=== PATIENT | male | born 1960 | race Caucasian/White ===

== ENCOUNTER 2025-03-07 13:31 | Inpatient (IN) | payer MEDICARE, OTHER ==
[~2025-03-07] VITALS: Ht 175.3 cm; Wt 117.0 kg
[2025-03-07] MEDS ORDERED: HYDR-501 PO (13:55)
[2025-03-07] MEDS ORDERED: MAG30ORA PO (13:55)
[2025-03-07] MEDS ORDERED: MULT-594 PO (13:55)
[2025-03-07] MEDS ORDERED: POLY17PO4 PO (13:55)
[2025-03-07] MEDS ORDERED: NA P133E RC (13:55)
[2025-03-07] MEDS ORDERED: LEVO88TA5 PO (13:55)
[2025-03-07] MEDS ORDERED: NALO4SPR NS (13:55)
[2025-03-07] MEDS ORDERED: LORA10CA PO (13:55)
[2025-03-07] MEDS ORDERED: TRAZ-182 PO (13:55)
[2025-03-07] MEDS ORDERED: ENOX40DI SQ (13:55)
[2025-03-07] MEDS ORDERED: GLUC1KIT IM (13:55)
[2025-03-07] MEDS ORDERED: OMEG1CAP PO (13:55)
[2025-03-07] MEDS ORDERED: BUSP5TAB3 PO (13:55)
[2025-03-07] MEDS ORDERED: ACET325C7 PO (13:55)
[2025-03-07] MEDS ORDERED: MORP15TA PO (13:55)
[2025-03-07] MEDS ORDERED: LAMO150T2 PO (13:55)
[2025-03-07] MEDS ORDERED: CHOL10005 PO (13:55)
[2025-03-07] MEDS ORDERED: LACT10SO58 PO (13:55)
[2025-03-07] MEDS ORDERED: AMIO200T5 PO (13:55)
[2025-03-07] MEDS ORDERED: SENN8.6T19 PO (13:55)
[2025-03-07] MEDS ORDERED: TAMS-3 PO (13:55)
[2025-03-07] MEDS ORDERED: ATOR40TA PO (13:55)
[2025-03-07] MEDS ORDERED: FERR325T28 PO (13:55)
[2025-03-07] MEDS ORDERED: PANT40TA49 PO (13:55)
[2025-03-07] MEDS ORDERED: MAGN400O6 PO (13:55)
[2025-03-07] MEDS ORDERED: MELA5TAB20 PO (13:55)
[2025-03-07] MEDS ORDERED: BISA10SU95 RC (13:55)
[2025-03-07] MEDS ORDERED: DULO40CA2 PO (13:55)
[2025-03-07] MEDS ORDERED: INSU100V28 SQ (13:55)
[2025-03-07 14:03] LABS: PLATELET COUNT (AUTO) 235 K/uL (152-348); RED BLOOD CELL COUNT(AUTO) 4.34 MIL/uL (4.06-5.63); RED CELL DISTRIBUTION WIDTH 14.4 % (12.1-16.2); WHITE BLOOD COUNT (AUTO) 8.1 K/uL (3.6-10.2)
[2025-03-07 14:14] LABS: CREATININE 2.4 mg/dL (0.6-1.3); SODIUM SERUM 139 mmol/L (136-145); UREA NITROGEN, BLOOD 31 mg/dL (7-18)
[2025-03-07 14:20] LABS: ASPARTATE AMINOTRANSFERASE 39 U/L (15-37); TOTAL PROTEIN, SERUM 6.5 g/dL (6.4-8.2)
[2025-03-07] MEDS ORDERED: AZITHROMYCIN 500MG/ D5W 250ML IVPB **ER PYXIS ONLY IV ONE (16:26)
[2025-03-07 16:30] VITALS: BP 113/79
[2025-03-07] MEDS: AZITHROMYCIN IV 500 MG in IV DEXTROSE 5% 250 ML IV ONE (16:30)
[2025-03-07 18:53] VITALS: BP 111/86; TEMP 98.4; O2SAT 96
[2025-03-07 19:00] VITALS: BP 119/86; TEMP 97.8; O2SAT 96
[2025-03-07] MEDS ORDERED: MIRALAX 17 GM POWD.PACK PO PRN (19:45)
[2025-03-07] MEDS ORDERED: ONDANSETRON 4 MG/2 ML VIAL IV PRN (19:45)
[2025-03-07] MEDS ORDERED: BISACODYL 10 MG SUPP.RECT RC PRN (19:45)
[2025-03-07] MEDS ORDERED: ACETAMINOPHEN 325 MG TABLET PO PRN (20:45)
[2025-03-07] MEDS ORDERED: TRAZODONE 50 MG TABLET PO SCH (21:00)
[2025-03-07] MEDS: IV NS 1000 ML 1,000 ML IV PRN (21:00)
[2025-03-07] MEDS ORDERED: CEFTRIAXONE /D5W 50ML IVPB **ER PYXIS IV ONE (21:01)
[2025-03-07] MEDS: ENOXAPARIN SODIUM 30 MG/0.3 ML DISP.SYRIN SUBCUT SCH (21:02)
[2025-03-07] MEDS: TAMSULOSIN HCL 0.4 MG CAP.SR.24H PO SCH (21:02)
[2025-03-07] MEDS: TRAZODONE 100 MG TABLET PO SCH (21:02)
[2025-03-07] MEDS: ATORVASTATIN 40 MG TABLET PO SCH (21:03)
[2025-03-07] MEDS: MELATONIN 3 MG TABLET PO SCH (21:03)
[2025-03-08] VITALS (7 sets, daily range): BP systolic 96–123; BP diastolic 63–85; TEMP 97.8–98.5; O2SAT 94–98
[2025-03-08] MEDS: LEVOTHYROXINE SODIUM 88 MCG TABLET PO SCH (06:32)
[2025-03-08 07:18] LABS: PLATELET COUNT (AUTO) 204 K/uL (152-348); RED BLOOD CELL COUNT(AUTO) 3.99 MIL/uL (4.06-5.63); RED CELL DISTRIBUTION WIDTH 14.3 % (12.1-16.2); WHITE BLOOD COUNT (AUTO) 8.1 K/uL (3.6-10.2)
[2025-03-08 08:04] LABS: ASPARTATE AMINOTRANSFERASE 34.0 U/L (15-37); CREATININE 2.1 mg/dL (0.6-1.3); SODIUM SERUM 140.0 mmol/L (136-145); TOTAL PROTEIN, SERUM 5.6 g/dL (6.4-8.2); UREA NITROGEN, BLOOD 29.0 mg/dL (7-18)
[2025-03-08] MEDS: LAMOTRIGINE 25 MG TABLET PO SCH (08:26)
[2025-03-08] MEDS: DULOXETINE 20 MG CAPSULE.DR PO SCH (08:26)
[2025-03-08] MEDS: SENNOSIDES 1 TABLET PO SCH (08:27)
[2025-03-08] MEDS: PANTOPRAZOLE SODIUM 40 MG TABLET.DR PO SCH (08:27)
[2025-03-08] MEDS: CHOLECALCIFEROL 1,000 UNIT TABLET PO SCH (08:27)
[2025-03-08] MEDS: MULTIVITAMINS,THERAPEUTIC TABLET PO SCH (08:27)
[2025-03-08] MEDS: LORATADINE 10 MG TABLET PO SCH (08:27)
[2025-03-08] MEDS: AMIODARONE HCL 200 MG TABLET PO SCH (08:28)
[2025-03-08] MEDS ORDERED: Medication Not On Formulary EA (Lamotrigine (Lamictal) 150 MG) PO SCH (09:00)
[2025-03-08] MEDS ORDERED: Medication Not On Formulary EA (Multivitamins (Multivitamin) 1 EACH) PO SCH (09:00)
[2025-03-08] MEDS ORDERED: AZITHROMYCIN IV 250 MG in IV DEXTROSE 5% 250 ML IV SCH (09:00)
[2025-03-08] MEDS ORDERED: DULOXETINE HCL 40 MG PO SCH (09:00)
[2025-03-08] MEDS ORDERED: LEVOTHYROXINE SODIUM 88 MCG TABLET PO SCH (09:00)
[2025-03-08] MEDS ORDERED: REMEDY ESSENTIAL ZINC PASTE 113 GM TOP PRN (09:15)
[2025-03-08] MEDS ORDERED: FERR-68 PO (11:08)
[2025-03-08] MEDS ORDERED: AZITHROMYCIN IV 500 MG in IV DEXTROSE 5% 250 ML IV SCH (16:00)
[2025-03-08] MEDS: DOXYCYCLINE HYCLATE 100 MG TABLET PO SCH (18:07)
[2025-03-09] MEDS: GUAIFENESIN/DEXTROMETHORPHAN 5 ML UDC PO PRN (01:12)
[2025-03-09 05:47] LABS: *BILIRUBIN,URIN NEGATIVE (NEGATIVE); *BLOOD, URINE NEGATIVE (NEGATIVE); *CLARITY,URINE CLEAR (CLEAR); *COLOR,URINE YELLOW (YELLOW); *KETONES,URINE NEGATIVE (NEGATIVE); *PROTEIN,URINE NEGATIVE (NEGATIVE); *UROBILINOGEN,URINE 0.2 E.U./dl (NORMAL); LEUKOCYTE ESTERASE ,URINE NEGATIVE (NEGATIVE); NITRITE, URINE NEGATIVE (NEGATIVE); UGLUCOSE NEGATIVE (NEGATIVE)
[2025-03-09 05:56] LABS: *CREATININE,URINE 72.5 mg/dL (30-125); *SODIUM RNDM,URINE 143.0 mmol/L (40-220); *URINE TOTAL PROTEIN RANDOM 14.8 mg/dL (<150/24HR)
[2025-03-09 06:00] VITALS: BP 132/80; TEMP 97.6; O2SAT 99
[2025-03-09 06:53] LABS: PLATELET COUNT (AUTO) 213 K/uL (152-348); RED BLOOD CELL COUNT(AUTO) 3.80 MIL/uL (4.06-5.63); RED CELL DISTRIBUTION WIDTH 14.5 % (12.1-16.2); WHITE BLOOD COUNT (AUTO) 8.5 K/uL (3.6-10.2)
[2025-03-09 07:09] LABS: ASPARTATE AMINOTRANSFERASE 31.0 U/L (15-37); CREATINE KINASE, TOTAL 41.0 U/L (39-308); CREATININE 2.2 mg/dL (0.6-1.3); SODIUM SERUM 141.0 mmol/L (136-145); TOTAL PROTEIN, SERUM 5.8 g/dL (6.4-8.2); UREA NITROGEN, BLOOD 27.0 mg/dL (7-18)
[2025-03-09 08:00] VITALS: BP 110/82; TEMP 98.7; O2SAT 97
[2025-03-09 10:54] VITALS: BP 101/65; TEMP 97.7; O2SAT 95
[2025-03-09 15:18] VITALS: BP 94/55; TEMP 97.8; O2SAT 94
[2025-03-09 17:00] VITALS: BP 133/86; O2SAT 94
[2025-03-09 19:37] VITALS: BP 108/71; TEMP 98.3; O2SAT 97
[2025-03-09] MEDS: MUPIROCIN 2% OINT 22 GM TUBE NS SCH (21:00)
[2025-03-09] MEDS ORDERED: MUPIROCIN 2% OINT 22 GM TUBE ONE (22:15)
[2025-03-10 06:12] LABS: PLATELET COUNT (AUTO) 217 K/uL (152-348); RED BLOOD CELL COUNT(AUTO) 3.96 MIL/uL (4.06-5.63); RED CELL DISTRIBUTION WIDTH 14.0 % (12.1-16.2); WHITE BLOOD COUNT (AUTO) 8.8 K/uL (3.6-10.2)
[2025-03-10 06:28] VITALS: BP 105/70; TEMP 98; O2SAT 95
[2025-03-10 06:29] LABS: ASPARTATE AMINOTRANSFERASE 33.0 U/L (15-37); CREATININE 2.0 mg/dL (0.6-1.3); SODIUM SERUM 142.0 mmol/L (136-145); TOTAL PROTEIN, SERUM 6.0 g/dL (6.4-8.2); UREA NITROGEN, BLOOD 24.0 mg/dL (7-18)
[2025-03-10] MEDS: LAMOTRIGINE 100 MG TABLET PO SCH (08:59)
[2025-03-10 09:03] VITALS: BP 107/66; TEMP 98; O2SAT 95
[2025-03-10] MEDS ORDERED: ALBUTEROL SULFATE 2.5 MG/ 0.5 ML NEBU NEB PRN (10:00)
[2025-03-10 11:30] VITALS: BP 110/70; TEMP 97.6; O2SAT 96
[2025-03-10 12:07] LABS: PTH, INTACT 23 pg/mL (15-65)
[2025-03-10] MEDS ORDERED: IV NS 1000 ML 1,000 ML IV PRN (13:15)
[2025-03-10 15:19] VITALS: BP 101/74; TEMP 97.8; O2SAT 95
[2025-03-10 19:00] VITALS: BP 118/73; TEMP 97.8; O2SAT 95
[2025-03-10] MEDS: ATORVASTATIN 10 MG TABLET PO SCH (20:38)
[2025-03-11 06:35] VITALS: BP 127/85; TEMP 97.6; O2SAT 94
[2025-03-11] MEDS: AZITHROMYCIN IV 500 MG in IV DEXTROSE 5% 250 ML IV SCH (11:42)
[2025-03-11 11:56] VITALS: BP 97/73; TEMP 98.1; O2SAT 95
[2025-03-11 16:28] VITALS: BP 132/83; TEMP 98.8; O2SAT 96
[2025-03-11 19:00] VITALS: BP 117/80; TEMP 97.9; O2SAT 97
[2025-03-12 06:00] VITALS: BP 116/83; TEMP 97.7; O2SAT 97
[2025-03-12 06:42] LABS: PLATELET COUNT (AUTO) 223 K/uL (152-348); RED BLOOD CELL COUNT(AUTO) 4.34 MIL/uL (4.06-5.63); RED CELL DISTRIBUTION WIDTH 14.2 % (12.1-16.2); WHITE BLOOD COUNT (AUTO) 8.6 K/uL (3.6-10.2)
[2025-03-12 06:52] LABS: ASPARTATE AMINOTRANSFERASE 45.0 U/L (15-37); CREATININE 1.9 mg/dL (0.6-1.3); SODIUM SERUM 142.0 mmol/L (136-145); TOTAL PROTEIN, SERUM 6.3 g/dL (6.4-8.2); UREA NITROGEN, BLOOD 24.0 mg/dL (7-18)
[2025-03-12 11:30] VITALS: BP 92/60; TEMP 98.4; O2SAT 94
[2025-03-13 10:07] LABS: *ANTI-SCLERODERMA-70 AB <0.2 AI (0.0-0.9); *RNP ANTIBODIES 0.9 AI (0.0-0.9); *SJOGREN'S ANTI-SS-A <0.2 AI (0.0-0.9); *SJOGREN'S ANTI-SS-B <0.2 AI (0.0-0.9); *SMITH ANTIBODIES <0.2 AI (0.0-0.9); ANTI-DNA(DS) AB, QN <1 IU/mL (0-9); ANTI-NUCLEAR AB DIRECT Negative (Negative)
== END 2025-03-12 14:25 | DRG 196 ==
LOC: ER 13:31 → TELE3 17:31 → MEDSURG3 03-08 08:15
PROVIDERS: ADMIT Internal Medicine; ATTEND Internal Medicine
DX: J84.112 Idiopathic pulmonary fibrosis (principal); N17.0 Acute kidney failure with tubular necrosis; D68.59 Other primary thrombophilia; I13.0 Hypertensive heart and chronic kidney disease with heart failure and stage 1 through stage 4 chronic kidney disease, or unspecified chronic kidney disease; I50.22 Chronic systolic (congestive) heart failure; Z68.41 Body mass index [BMI] 40.0-44.9, adult; I69.354 Hemiplegia and hemiparesis following cerebral infarction affecting left non-dominant side; E44.0 Moderate protein-calorie malnutrition; N18.9 Chronic kidney disease, unspecified; E66.01 Morbid (severe) obesity due to excess calories; I48.0 Paroxysmal atrial fibrillation; Z74.09 Other reduced mobility; Z86.14 Personal history of Methicillin resistant Staphylococcus aureus infection; E78.5 Hyperlipidemia, unspecified; I44.0 Atrioventricular block, first degree; J20.9 Acute bronchitis, unspecified; N40.0 Benign prostatic hyperplasia without lower urinary tract symptoms; Z87.891 Personal history of nicotine dependence; Z96.642 Presence of left artificial hip joint; E88.09 Other disorders of plasma-protein metabolism, not elsewhere classified; E11.22 Type 2 diabetes mellitus with diabetic chronic kidney disease; N18.32 Chronic kidney disease, stage 3b; Z86.39 Personal history of other endocrine, nutritional and metabolic disease; I71.21 Aneurysm of the ascending aorta, without rupture; D64.9 Anemia, unspecified; L29.9 Pruritus, unspecified; K21.9 Gastro-esophageal reflux disease without esophagitis; G47.33 Obstructive sleep apnea (adult) (pediatric); F32.A Depression, unspecified; F41.9 Anxiety disorder, unspecified; Z79.899 Other long term (current) drug therapy; L28.1 Prurigo nodularis; M10.9 Gout, unspecified; Z87.81 Personal history of (healed) traumatic fracture
CPT/HCPCS: 36415; 71045; 71250; 76770; 78580; 83735; 83970; 84100; 84155; 84165; 84300; 84443; 84484; 85025; 85651; 86038; 87040; 87070; A9540; G0378; J0456; J0696; J1650; J7040; J7050; Q0163